=== PATIENT | male | born 1955 | race Two or more races ===

== ENCOUNTER 2025-02-15 10:53 | Emergency (ER) | payer BC ==
[~2025-02-15] VITALS: Ht 167.6 cm; Wt 63.5 kg
[2025-02-15 11:09] VITALS: TEMP 98
[2025-02-15 11:49] LABS: PLATELET COUNT (AUTO) 186 K/uL (150-450); RED BLOOD CELL COUNT(AUTO) 5.32 MIL/uL (4.5-6.0); RED CELL DISTRIBUTION WIDTH 14.9 % (11.5-15.0); WHITE BLOOD COUNT (AUTO) 8.1 K/uL (4.3-11.0)
[2025-02-15 12:01] LABS: APPEARANCE,URINE CLEAR (CLEAR); BLOOD, URINE NEGATIVE Ery/uL (NEGATIVE); LEUKOCYTE ESTERASE ,URINE NEGATIVE (NEGATIVE); NITRITE, URINE NEGATIVE (NEGATIVE); UGLUCOSE NEGATIVE (NEGATIVE)
[2025-02-15 12:07] LABS: AMPHETAMINE, URINE NEGATIVE (NEGATIVE); BARBITURATE, URINE NEGATIVE (NEGATIVE); BENZODIAZEPINE, URINE NEGATIVE (NEGATIVE); CANNABINOID, URINE NEGATIVE (NEGATIVE); COCCAINE, URINE NEGATIVE (NEGATIVE); OPIATE, URINE NEGATIVE (NEGATIVE)
[2025-02-15] MEDS ORDERED: TAMS-12 PO (12:08)
[2025-02-15] MEDS ORDERED: THYR120T2 PO (12:08)
[2025-02-15] MEDS ORDERED: BUSP15TA3 PO (12:08)
[2025-02-15] MEDS ORDERED: LORA-258 PO (12:08)
[2025-02-15] MEDS ORDERED: LORA-259 PO (12:08)
[2025-02-15] MEDS ORDERED: BUPR75TA8 PO (12:08)
[2025-02-15] MEDS ORDERED: DOCU100T2 PO (12:08)
[2025-02-15] MEDS ORDERED: LOSA100T31 PO (12:08)
[2025-02-15] MEDS ORDERED: QUET50TA PO (12:08)
[2025-02-15 12:09] LABS: CALCIUM, SERUM 9.1 mg/dL (8.5-10.1); CREATININE 1.1 mg/dL (0.6-1.3); SODIUM SERUM 144 mmol/L (136-145); UREA NITROGEN, BLOOD 10 mg/dL (7-18)
[2025-02-15 12:15] LABS: ASPARTATE AMINOTRANSFERASE 13 U/L (15-37); TOTAL PROTEIN, SERUM 6.7 g/dL (6.4-8.2)
[2025-02-15 13:34] VITALS: BP 141/77; O2SAT 99
== END 2025-02-15 15:54 ==
LOC: ER 11:21
DX: R45.851 Suicidal ideations (principal); F31.9 Bipolar disorder, unspecified; F41.9 Anxiety disorder, unspecified; Z79.890 Hormone replacement therapy; Z79.899 Other long term (current) drug therapy; Z88.5 Allergy status to narcotic agent; Z86.79 Personal history of other diseases of the circulatory system; Z88.8 Allergy status to other drugs, medicaments and biological substances
CPT/HCPCS: 36415; 80048-TC; 80076-TC; 85025-TC

== ENCOUNTER 2025-04-16 05:13 | Inpatient (IN) | payer BC ==
[~2025-04-16] VITALS: Ht 175.3 cm; Wt 70.3 kg
[~2025-04-16 05:13] MED LIST: BUPR75TA8 PO; BUSP15TA3 PO; DOCU100T2 PO; LORA-258 PO; LORA-259 PO; LOSA100T31 PO; QUET50TA PO; TAMS-12 PO; THYR120T2 PO
[2025-04-16 06:01] VITALS: TEMP 97
[2025-04-16 06:42] LABS: APPEARANCE,URINE CLEAR (CLEAR); BLOOD, URINE NEGATIVE Ery/uL (NEGATIVE); LEUKOCYTE ESTERASE ,URINE NEGATIVE (NEGATIVE); NITRITE, URINE NEGATIVE (NEGATIVE); UGLUCOSE NEGATIVE (NEGATIVE)
[2025-04-16 06:46] LABS: CALCIUM, SERUM 9.3 mg/dL (8.5-10.1); CREATININE 0.9 mg/dL (0.6-1.3); SODIUM SERUM 143 mmol/L (136-145); UREA NITROGEN, BLOOD 12 mg/dL (7-18)
[2025-04-16 06:50] LABS: PLATELET COUNT (AUTO) 182 K/uL (150-450); RED BLOOD CELL COUNT(AUTO) 5.61 MIL/uL (4.5-6.0); RED CELL DISTRIBUTION WIDTH 15.0 % (11.5-15.0); WHITE BLOOD COUNT (AUTO) 7.8 K/uL (4.3-11.0)
[2025-04-16 06:52] LABS: ALCOHOL, BLOOD < 3 mg/dL (0-10); ASPARTATE AMINOTRANSFERASE 13 U/L (15-37); TOTAL PROTEIN, SERUM 6.9 g/dL (6.4-8.2)
[2025-04-16] MEDS ORDERED: HYDROCODONE/APAP 10/325MG TABLET ONE (06:59)
[2025-04-16] MEDS: HYDROCODONE/APAP 10/325MG TABLET PO ONE (06:59)
[2025-04-16 07:04] LABS: AMPHETAMINE, URINE NEGATIVE (NEGATIVE); BARBITURATE, URINE NEGATIVE (NEGATIVE); BENZODIAZEPINE, URINE NEGATIVE (NEGATIVE); CANNABINOID, URINE NEGATIVE (NEGATIVE); COCCAINE, URINE NEGATIVE (NEGATIVE); OPIATE, URINE NEGATIVE (NEGATIVE)
[2025-04-16] MEDS ORDERED: FINA5TAB11 PO (08:21)
[2025-04-16] MEDS ORDERED: BUPR150T10 PO (08:21)
[2025-04-16] MEDS ORDERED: BUPR-96 PO (08:21)
[2025-04-16 09:37] VITALS: BP 156/71; O2SAT 100
[2025-04-16] MEDS ORDERED: MAGNESIUM HYDROXIDE 30 ML UDC PO PRN (12:00)
[2025-04-16] MEDS ORDERED: LORAZEPAM 0.5 MG TABLET PO PRN (12:00)
[2025-04-16] MEDS ORDERED: TEMAZEPAM 7.5 MG CAPSULE PO PRN (12:00)
[2025-04-16] MEDS ORDERED: ACETAMINOPHEN 325 MG TABLET PO PRN (12:00)
[2025-04-16] MEDS ORDERED: MAG HYDROX/AL HYDROX/SIMETH 30 ML UDC PO PRN (12:00)
[2025-04-16] MEDS: BLOOD SUGAR DIAGNOSTIC 1 EACH STRIP IN ONE (12:52)
[2025-04-16] MEDS ORDERED: QUETIAPINE FUMARATE 100 MG TABLET PO SCH (22:00)
== END 2025-04-16 15:31 | disposition home or self-care (01) | DRG 885 ==
LOC: ER 05:21 → GPS 09:21
PROVIDERS: ADMIT Nurse Practitioner Psychiatric/Mental Health; ATTEND Nurse Practitioner Acute Care
DX: F31.9 Bipolar disorder, unspecified (principal); F41.9 Anxiety disorder, unspecified; Z73.6 Limitation of activities due to disability; G89.29 Other chronic pain; F40.00 Agoraphobia, unspecified
CPT/HCPCS: 36415; 80048-TC; 80076-TC; 82962-TC; 85025-TC; G0480